=== PATIENT | male | born 1940 | race Caucasian/White ===

== ENCOUNTER 2021-05-03 11:53 | Observation (INO) | payer MEDICARE, SELFPAY ==
[2021-05-03] VITALS (10 sets, daily range): BP systolic 125–184; BP diastolic 65–88; PULSE 62–78; RESP 14–20; TEMP 36.5; O2SAT 90–98; BMI 19.8
--- NOTE | 2021-05-03 12:17 | XRR_ITS ---
PROCEDURE INFORMATION: Exam: XR Chest Exam date and time: 05/03/2021 12:17 PM Age: 80 years old Clinical indication: Cough; Additional info: Light-headedness, cough TECHNIQUE: Imaging protocol: XR of the chest. Views: 1 view. COMPARISON: CR Chest 1 [place] [id number] 12/01/2017 4:11 PM FINDINGS: Lungs: Mild right perihilar and [id number]-yaegmjdg left mid and left lung base pneumonia. Pleural spaces: Unremarkable. No pleural effusion. No pneumothorax. Heart/Mediastinum: Unremarkable. No cardiomegaly. Bones/joints: Unremarkable. XR/XR chest 1V portable [id number] IMPRESSION: Mild right perihilar and [id number]-svvcttft left mid and left lung base pneumonia.
--- NOTE | 2021-05-03 12:17 | ECG_ITS ---
[facility] Test Date: 2021-05-03 Pat Name: Lan Nino Department: Room: Gender: Male Director Orange: : 1940 Requested By: Ulises Molina Order Number: [id number] Parks MD: Sydney Escobar M.D. Measurements Intervals [place] Rate: 73 P: 41 WV: 176 QRS: 4 QRSD: 103 T: 36 QT: 395 QTc: 436 Interpretive Statements SINUS RHYTHM WITH OCCASIONAL VENTRICULAR PREMATURE COMPLEXES WITH FREQUENT SUPRAVENTRICULAR PREMATURE COMPLEXES MINIMAL ST DEPRESSION [0.025+ mV ST DEPRESSION] ABNORMAL RHYTHM ECG Compared to ECG 12/01/2017 18:53:26 Ventricular premature complex(es) now present ST (T wave) deviation now present Electronically Signed On 05-03-2021 20:04:56 DATASTAGE CONSULTANT by Sydney Escobar M.D. [email or web address]
--- NOTE | 2021-05-03 12:21 | ED_ITS ---
HPI - General Adult General: Chief complaint: COVID symptoms Stated complaint: WEAKNESS; NOT EATING Time Seen by Provider: 05/03/21 12:00 History of Present Illness: HPI narrative: Patient is a 80-year-old male w/ hx of HTN not compliant with medication presents the emergency room with complaints of generalized weakness, fatigue, cough dyspnea worsening over the last week. Per patient's currently hospitalized for COVID, patient has been had a cough and 2 days ago was walking when he fell and hit his head twice. Patient's denies any chest pain, fever/chills, abdominal complaints, nausea/vomiting, diarrhea, melena hematochezia. He has no urinary complaints today. Patient's was admitted for covid. Patient's daughter claims he hasn't eaten anything other than 3 cookies this whole week. Onset:1 week ago Duration:1 week Location:home Severity:moderate Associated symptoms: Reports dyspnea and malaise; Deny chest pain, nausea, rash, palpitations or vomiting Review of Systems Const: Reports: chills, fatigue, malaise and other (generalized weakness); Denies: fever(s) Eyes: Denies: change in vision ENMT: Denies: mouth pain Card: Denies: chest pain or palpitations Resp: Reports: dyspnea and non-productive cough GI: Denies: abdominal pain, nausea, vomiting or diarrhea : Denies: dysuria Musc: Denies: extremity pain Skin/Breast: Denies: rash or new lesions Neuro: Denies: weakness in extremities Psych: Reports: other (Normal mood) David/Lymph: Denies: easy bruising PFS ED PFSH: Medical History (Updated 05/03/21 @ 16:07 by Ulises Molina MD) Hypertension Family History (Updated 05/03/21 @ 12:21 by Ulises Molina MD) Denies family history of Anesthesia complication Bleeding disorder Social History (Updated 05/03/21 @ 12:21 by Ulises Molina MD) Smoking and tobacco status: never smoked Alcohol intake: never Substance/Drug Use: never Physical Exam Const: COMMON NORMALS: alert HENMT: COMMON NORMALS: atraumatic HEAD & SCALP: atraumatic MOUTH: moist mucous membranes not abnormal Eye: COMMON NORMALS: EOMs intact bilaterally and conjunctivae normal CONJUNCTIVA: Yes conjunctivae normal Neck/C-Spine: COMMON NORMALS: full ROM and supple Resp: COMMON NORMALS: normal respiratory effort and clear to auscultation bilaterally AUSCULTATION: clear to auscultation bilaterally Cardio: COMMON NORMALS: regular rate RATE: regular rate GI: COMMON NORMALS: Soft to palpation and non-tender PALPATION: Yes Soft to palpation Extremity: COMMON NORMALS: full ROM Neuro: SENSORIUM/ORIENTATION: Yes alert MOTOR EXAM: No Abnormal motor strength present and Other motor observations present (no focal motor deficits) Psych: COMMON NORMALS: speech normal SPEECH: Yes normal speech MOOD & AFFECT: Yes euthymic mood Course Vital Signs: Vital signs: Vital Signs Temperature 97.7 F 05/03/21 12:06 Pulse Rate 67 05/03/21 15:31 Respiratory Rate 16 05/03/21 15:31 Blood Pressure 135/88 05/03/21 15:31 Pulse Oximetry 90 05/03/21 15:31 MDM - General Adult MDM Narrative: Medical decision making narrative: 80-year-old male presents emergency room with inability to care for self, decreased p.o. intake, g eneralized weakness cough and dyspnea. She is afebrile, no focal findings on physical exam. Patient do not have a creatinine 1.7 with no prior baseline for comparison. Patient is COVID-positive. I have discussed case with patient's who tells me that since she is in the hospital, she is not able to take care of him at home. Patient's daughter agrees with plan for observation of patient for 1 day. Patient will be made his hospital for rehydration and rehydration. Disposition: admission Lab Data: Labs: Lab Results 05/03/21 05/03/21 05/03/21 12:05 12:05 12:05 WBC 3.7 10^3/uL L 10^ 3/uL (4.0-10.0) RBC 3.94 10^6/uL L 10 ^6/uL (4.1-5.3) Hgb 11.6 g/dL L g/dL (11.7-16.6) Hct 33.6 % L % (42.0-52.0) MCV 85.3 fl fl (80-94) MCH 29.4 pg pg (28.0-34.0) MCHC 34.5 g/dL g/dL (30.0-36.0) RDW 12.7 % % (12.1-15.1) Plt Count 196 10^3/cmm 10^3 /cmm (130-400) MPV 9.0 fL fL (7.4-10.4) Neut % (Auto) 67.8 % % Lymph % (Auto) 23.3 % % [place] % (Auto) 8.0 % % Eos % (Auto) 0.3 % % Baso % (Auto) 0.3 % % Neut # (Auto) 2.53 10^3/uL 10^3 /uL (1.8-7.7) Lymph # (Auto) 0.9 10^3/uL 10^3/ uL (0.8-4.8) [place] # (Auto) 0.3 10^3/uL 10^3/ uL (0.2-0.9) Eos # (Auto) 0.0 10^3/uL 10^3/ uL (0.0-0.8) Baso # (Auto) 0.0 10^3/uL 10^3/ uL (0.0-0.1) Nucleated RBC % (a uto) 0 % % Nucleated RBCs # 0.0 /100WBC /100W BC Sodium 130 mmol/L L mmol /L (136-145) Potassium 3.5 mmol/L mmol/L (3.5-5.1) Chloride 92 mmol/L L mmol/ L (98-107) Carbon Dioxide 23 mmol/L mmol/L (22-29) Anion Gap 18.5 (5-19) BUN 25 mg/dL H mg/dL (8-23) Creatinine 1.7 mg/dL H mg/dL (0.7-1.2) GFR Calculation Not Reportable Glucose 116 mg/dL H mg/dL (65-115) Calculated Osmolal ity 275 mOsm/kg L mOs m/kg (285-295) Calcium 8.1 mg/dL L mg/dL (8.5-10.5) Magnesium 2.3 mg/dL mg/dL (1.7-2.3) Total Bilirubin 0.3 mg/dL mg/dL (0.15-1.2) AST 16 U/L U/L (0-40) ALT 6 U/L U/L (0-41) Alkaline Phosphata se 74 IU/L IU/L (40-130) Troponin T Baselin e 27 ng/L H ng/L (0-15) Troponin T 120 Min [place] Delta Troponin T NT-Pro-B Natriuret Pep 477 pg/mL H pg/mL (0-450) Total Protein 6.5 g/dL L g/dL (6.6-8.7) Albumin 3.6 g/dL g/dL (3.5-5.2) Globulin 2.9 g/dL g/dL (1.3-4.6) Lipase 90 U/L H U/L (13-60) Procalcitonin Urine Color Urine Appearance Urine pH Ur Specific Gravit y Urine Protein Urine Glucose (UA) Urine Ketones Urine Blood Urine Nitrate Urine Bilirubin Urine Urobilinogen Ur Leukocyte [place] Coronavirus 229E ( PCR) SARS-CoV-2 (PCR) 05/03/21 05/03/21 05/03/21 12:05 12:38 14:30 WBC RBC Hgb Hct MCV MCH MCHC RDW Plt Count MPV Neut % (Auto) Lymph % (Auto) [place] % (Auto) Eos % (Auto) Baso % (Auto) Neut # (Auto) Lymph # (Auto) [place] # (Auto) Eos # (Auto) Baso # (Auto) Nucleated RBC % (a uto) Nucleated RBCs # Sodium Potassium Chloride Carbon Dioxide Anion Gap BUN Creatinine GFR Calculation Glucose Calculated Osmolal ity Calcium Magnesium Total Bilirubin AST ALT Alkaline Phosphata se Troponin T Baselin e Troponin T 120 Min [place] 24.48 ng/L H ng/L (0-15) Delta Troponin T -2.52 ABS# L ABS# (0-10) NT-Pro-B Natriuret Pep Total Protein Albumin Globulin Lipase Procalcitonin 0.15 ng/mL ng/mL (0-0.5) Urine Color Urine Appearance Urine pH Ur Specific Gravit y Urine Protein Urine Glucose (UA) Urine Ketones Urine Blood Urine Nitrate Urine Bilirubin Urine Urobilinogen Ur Leukocyte [place] Coronavirus 229E ( PCR) Not detected (NOT DETECT) SARS-CoV-2 (PCR) Detected A (NOT DETECT) 05/03/21 14:30 WBC RBC Hgb Hct MCV MCH MCHC RDW Plt Count MPV Neut % (Auto) Lymph % (Auto) [place] % (Auto) Eos % (Auto) Baso % (Auto) Neut # (Auto) Lymph # (Auto) [place] # (Auto) Eos # (Auto) Baso # (Auto) Nucleated RBC % (a uto) Nucleated RBCs # Sodium Potassium Chloride Carbon Dioxide Anion Gap BUN Creatinine GFR Calculation Glucose Calculated Osmolal ity Calcium Magnesium Total Bilirubin AST ALT Alkaline Phosphata se Troponin T Baselin e Troponin T 120 Min [place] Troponin T NT-Pro-B Natriuret Pep Total Protein Albumin Globulin Lipase Procalcitonin Urine Color Yellow (Yellow) Urine Appearance Clear (CLEAR) Urine pH 5 (5-7) Ur Specific Gravit y 1.020 (1.005-1.030) Urine Protein Neg (Negative) Urine Glucose (UA) Norm (Normal) Urine Ketones Negative (Negative) Urine Blood Neg (Negative) Urine Nitrate Negative (Negative) Urine Bilirubin Neg (Negative) Urine Urobilinogen Norm mg/dL mg/dL (Negative) Ur Leukocyte [place] Negative (Negative) Coronavirus 229E ( PCR) SARS-CoV-2 (PCR) Imaging Data^: Other Imaging: Radiologist's impression: [address] [id number] Scan ReportSigned Patient: Lan Nino #: [id number]: 3Acc#:[id number]/Sex: 80 / MADM Date: 05/03/21Loc: ERRoom/Bed:Attending Dr: Ordering Provider/Ordering MD: Ulises Molina MD Date of Service: 05/03/21 Procedure(s): CT head wo con* [id number] Accession Number(s): [id number] Report Number: [id number] PROCEDURE INFORMATION: Exam: CT Head Without Contrast Exam date and time: 05/03/2021 12:21 PM Age: 80 years old Clinical indication: Injury or trauma; Blunt trauma (contusions or hematomas); Without loss of consciousness; Patient HX: Fall 2 days ago denies loc TECHNIQUE: Imaging protocol: Computed tomography of the head without contrast. Radiation optimization: All CT scans at this facility use at least one of these dose optimization techniques: automated exposure control; mA and/or kV adjustment per patient size (includes targeted exams where dose is matched to clinical indication); or iterative reconstruction. COMPARISON: CT head wo con* [id number] 02/21/2017 5:28 PM RADIATION DOSE METRICS: Total DLP (mGy-cm): 997.15 FINDINGS: Brain: Mild to moderate cerebral atrophy and ischemic leukoencephalopathy. Cerebral ventricles: No ventriculomegaly. Paranasal sinuses: Decreased left maxillary sinus disease with moderate residual. Moderate bilateral ethmoid sinus disease. Mastoid air cells: Visualized mastoid air cells are well aerated. Vasculature: Moderate calcified intracranial atherosclerotic vessel disease. Bones/joints: Unremarkable. No acute fracture. Soft tissues: Unremarkable. Other findings: Continued chronic otitis media and possible external otitis. CT/CT head wo con* [id number] IMPRESSION: 1. Decreased left maxillary sinus disease with moderate residual. 2. Moderate bilateral ethmoid sinus disease. 3. Continued chronic otitis media and possible external otitis. 4. No acute intracranial findings. Dictated By:Hugo Hamilton MDSigned By:Hugo Hamilton MDSigned Date/Time:05/03/21 1448DD/ 1221 [address] [place], [place] [address]DCfl ReportSigned Patient: Lan Nino #: [id number]: 1940cct#:[id number]/Sex: 80 / MADM Date: 05/03/21Loc: ERRoom/Bed:Attending Dr: Ordering Provider/Ordering MD: Ulises Molina MD Date of Service: 05/03/21 Procedure(s): XR chest 1V portable [id number] Accession Number(s): [id number] Report Number: [id number] PROCEDURE INFORMATION: Exam: XR Chest Exam date and time: 05/03/2021 12:17 PM Age: 80 years old Clinical indication: Cough; Additional info: Light-headedness, cough TECHNIQUE: Imaging protocol: XR of the chest. Views: 1 view. COMPARISON: CR Chest 1 [place] [id number] 12/01/2017 4:11 PM FINDINGS: Lungs: Mild right perihilar and awmu-hr-myfmozto left mid and left lung base pneumonia. Pleural spaces: Unremarkable. No pleural effusion. No pneumothorax. Heart/Mediastinum: Unremarkable. No cardiomegaly. Bones/joints: Unremarkable. XR/XR chest 1V portable [id number] IMPRESSION: Mild right perihilar and wmfm-[id number] left mid and left lung base pneumonia. Dictated By:Hugo Hamilton MDSigned By:Hugo Hamilton MDSigned Date/Time:05/03/21 1449DD/ 1217 Discharge Plan Discharge Clinical Impression: Generalized weakness, Fatigue, Cough, Dyspnea, Fall Condition: Stable Coding Level of Care Code ED Management Coordinator for Chg Fwd Exam Comprehensive
[2021-05-03 12:30] LABS: Basophils % 0.3 %; Eosinophils % 0.3 %; Hematocrit 33.6 % (42.0-52.0); Hemoglobin 11.6 g/dL (11.7-16.6); Lymphocytes # 0.9 10^3/uL (0.8-4.8); Lymphocytes % 23.3 %; Mean Corpuscular HGB Conc 34.5 g/dL (30.0-36.0); Mean Corpuscular Hemoglobin 29.4 pg (28.0-34.0); Mean Corpuscular Volume 85.3 fl (80-94); Monocytes # 0.3 10^3/uL (0.2-0.9); Neutrophils # 2.53 10^3/uL (1.8-7.7); Neutrophils % 67.8 %; Nucleated Red Blood Cells % 0 %; Platelet Count 196 10^3/cmm (130-400); Red Blood Count 3.94 10^6/uL (4.1-5.3); Red Cell Distribution Width 12.7 % (12.1-15.1); White Blood Count 3.7 10^3/uL (4.0-10.0)
[2021-05-03 12:55] LABS: Troponin(5th) Baseline 27 ng/L (0-15)
[2021-05-03 13:00] LABS: Alanine Aminotransferase 6 U/L (0-41); Albumin Level 3.6 g/dL (3.5-5.2); Alkaline Phosphatase 74 IU/L (40-130); Anion Gap 18.5 (5-19); Aspartate Amino Transferase 16 U/L (0-40); Blood Urea Nitrogen 25 mg/dL (8-23); Calcium 8.1 mg/dL (8.5-10.5); Carbon Dioxide 23 mmol/L (22-29); Chloride 92 mmol/L (98-107); Globulin 2.9 g/dL (1.3-4.6); Glucose 116 mg/dL (65-115); Lipase 90 U/L (13-60); Magnesium 2.3 mg/dL (1.7-2.3); NT Pro B Type Natriuretic Pept 477 pg/mL (0-450); Osmolality Calculated 275 mOsm/kg (285-295); Potassium 3.5 mmol/L (3.5-5.1); Sodium 130 mmol/L (136-145); Total Bilirubin 0.3 mg/dL (0.15-1.2); Total Protein 6.5 g/dL (6.6-8.7)
[2021-05-03 14:24] LABS: Adenovirus Not Detected (NOT DETECT); Chlamydia Pneumoniae Not Detected (NOT DETECT); Coronavirus 229E,HKU1,NL63,OC4 Not Detected (NOT DETECT); Human Metapneumovirus Not Detected (NOT DETECT); Human Rhinovirus/Enterovirus Not Detected (NOT DETECT); Influenza A Not Detected (NOT DETECT); Influenza A H1 Not Detected (NOT DETECT); Influenza A H1-2009 Not Detected (NOT DETECT); Influenza A H3 Not Detected (NOT DETECT); Influenza B Not Detected (NOT DETECT); Mycoplasma Pneumoniae Not Detected (NOT DETECT); Parainfluenza Virus Type 1 Not Detected (NOT DETECT); Parainfluenza Virus Type 2 Not Detected (NOT DETECT); Parainfluenza Virus Type 3 Not Detected (NOT DETECT); Parainfluenza Virus Type 4 Not Detected (NOT DETECT); Respiratory Syncytial Virus A Not Detected (NOT DETECT); Respiratory Syncytial Virus B Not Detected (NOT DETECT); SARS-COV-2 Detected (NOT DETECT)
[2021-05-03 14:39] LABS: Add Urine Microscopic? NO; Charge for UA Resulting for Rev
[2021-05-03 14:41] LABS: Bilirubin Urine Neg (Negative); Blood Urine Neg (Negative); Glucose Urine UA Norm (Normal); Ketones Urine Negative (Negative); Leukocyte Esterase Urine Negative (Negative); Nitrate Urine Negative (Negative); Protein Urine Neg (Negative); Urine Appearance Clear (CLEAR); Urine Color Yellow (Yellow); Urobilinogen Urine Norm (Negative); pH Urine 5 (5-7)
[2021-05-03 15:03] LABS: Troponin 5 2HR 24.48 ng/L (0-15)
[2021-05-03 15:06] LABS: Troponin 5 2HR Delta -2.52 ABS# (0-10)
--- NOTE | 2021-05-03 15:08 | P.HP_ITS ---
Providers/Chief Complaint Chief Complaint: WEAKNESS; NOT EATING History of Present Illness Lan Nino is a 80 year old male who presented to the hospital with chief complaint of generalized weakness and malaise. Patient is stating that his symptoms started roughly about 4 to 5 days ago with fatigue which has gradually gotten worse, his is admitted to the hospital COVID-19 hypoxia, today his daughter sent him to the ER for further evaluation for his worsening fatigue lethargy and confusion. In the ER he was diagnosed with dehydration, tested positive for COVID-19, he is not requiring oxygen at rest, acute on chronic kidney disease, hyponatremia. Sinus rhythm with PVCs Patient denied chest pain, nausea, vomiting, diarrhea and febrile events at home. Past Medical History: History of pelvic fracture, with prolonged hospital stay Hypertension COPD Gout Hypothyroidism Gastroesophageal reflux disease Depression/anxiety history of colon cancer Carotid artery disease Other Surgical History: Skin cancer removal, with radical neck done secondary to squamous cell carcinoma left side Colon cancer, with some type of colectomy about 12 years ago Other Family Medical History: Significant for coronary disease in his father as well as prostate cancer Other Past Social History: He chews tobacco. Denies smoking, alcohol or illicit substance use. reports he is a full code, but does not want any prolonged life support. Review of Systems Const: Reports: chills, body aches, change in appetite, change in weight, fatigue and malaise Eyes: Denies: change in vision ENMT: Denies: throat pain Card: Denies: chest pain Resp: Reports: dyspnea GI: Denies: abdominal pain : Denies: flank pain Musc: Denies: neck pain Skin/Breast: Denies: rash Neuro: Denies: headache(s) Psych: Denies: anxiety Endo: Denies: polyuria David/Lymph: Denies: easy bruising All/Imm: Denies: urticaria Medications/Allergies Home Medications Medication Instructions Recorded Confirmed Last Taken Type Unable to Assess 05/03/21 05/03/21 Unknown History Allergies Allergy/AdvReac Type Severity Reaction Status Date / Time No Known Allergies Allergy Verified 05/03/21 12:06 PFSH Acute PFSH: Medical History Hypertension Surgical History (Updated 05/03/21 @ 16:12 by Hannah Llanos MD) H/O colectomy Family History Denies family history of Anesthesia complication Bleeding disorder Social History Smoking and tobacco status: never smoked Alcohol intake: never Substance/Drug Use: never Vitals/I&O/Wt Last Vital Signs Temp 97.7 F 05/03/21 12:06 Pulse 66 05/03/21 14:30 Resp 16 05/03/21 14:30 BP 135/88 05/03/21 14:30 Pulse Ox 95 05/03/21 14:30 Weight last 48 hrs Weight 64.41 kg Physical Exam Narrative: EXAM NARRATIVE: Patient looks clinically dehydrated Appears stated age Awake and alert Very hard of hearing Sinus rhythm with PVCs Hemodynamically stable No active shortness of breath Saturating well on room air Heart rate in 70s No signs of edema Abdomen soft Mild rhonchi otherwise no acute respite distress or conversational dyspnea He is awake and alert oriented to time place and person Data : 05/03/21 12:05 05/03/21 12:05 A&P Assessment and plan (1) COVID: Status: Acute (2) Confused: Status: Acute (3) Generalized weakness: Status: Acute (4) Fatigue: Status: Acute Additional A&P Information COVID-19 Generalized malaise and fatigue No active shortness of breath at rest, Start Decadron DuoNeb Saturating well on room air we will request ABG Acute on chronic kidney disease Seems secondary to dehydration Anticipating improvement baseline creatinine seems to be around 1.5-1.6 Confusion Likely related to COVID-19, no active strokelike changes, CT head unremarkable Sodium 130 Dehydration: Continue IV fluid hydration overnight Patient is full code Cardiac diet DVT prophylaxis Heparin Attestations Medical Necessity Statement*: Anticipating discharge within 48 hours if clinically stays stable if he becomes hypoxic this will prolong his hospitalization Time Spent in Patient Care: Greater than 35 minutes Coding Level of Care Code Acute Director Banking for Chg Fwd Diagnoses COVID U07.1 Confused R41.0 Generalized weakness R53.1 Fatigue R53.83
[2021-05-03 16:05] LABS: Procalcitonin 0.15 ng/mL (0-0.5)
--- NOTE | 2021-05-03 18:17 | ECG_ITS ---
[facility] Test Date: 2021-05-03 Pat Name: Lan Nino Department: Room: EDIP Gender: Male Raking Machine Operator: : 1940 Requested By: Ulises Molina Order Number: [id number] Charly MD: Sydney Escobar M.D. Measurements Intervals [place] Rate: 79 P: 47 IN: 196 QRS: 5 QRSD: 97 T: 17 QT: 356 QTc: 408 Interpretive Statements SINUS RHYTHM WITH OCCASIONAL SUPRAVENTRICULAR PREMATURE COMPLEXES MINIMAL ST DEPRESSION [0.025+ mV ST DEPRESSION] Compared to ECG 05/03/2021 12:33:30 Ventricular premature complex(es) no longer present ST (T wave) deviation still present Electronically Signed On 05-03-2021 20:15:46 FAGOT HEATER HELPER by Sydney Escobar M.D. [id number]
[2021-05-03] MEDS: lactated ringers 1,000 ML 100 ML IV (20:57)
[2021-05-03] MEDS: heparin 5,000 unit/mL INJ 1 mL 5000 UNIT SUBCUT (22:50)
[2021-05-04] VITALS (10 sets, daily range): BP systolic 144–209; BP diastolic 84–104; PULSE 59–71; RESP 17–20; TEMP 36.4; O2SAT 95–98
[2021-05-04] MEDS: potassium chloride ER 20 mEq Tablet 40 MEQ PO (00:01)
[2021-05-04] MEDS: dexamethasone 10 mg/mL INJ IVP (00:01)
[2021-05-04 04:05] LABS: ABG PCO2 33.7 mmHg (35-45); ABG PH Result 7.48 (7.35-7.45); Arterial Blood Gas Hematocrit 38.8 % (42-52); Blood Gas Allen Test Pos; Blood Gas Sample Site Radial, left; Blood Gas Sample Type Arterial; HCO3 ABG 25.1 mmol/L (22-26); Oxygen Device ROOM AIR
[2021-05-04] MEDS: lactated ringers 1,000 ML 100 ML IV (04:37)
[2021-05-04 07:06] LABS: Hematocrit 36.2 % (42.0-52.0); Hemoglobin 12.6 g/dL (11.7-16.6); Lymphocytes # 0.4 10^3/uL (0.8-4.8); Lymphocytes % 15.5 %; Mean Corpuscular HGB Conc 34.8 g/dL (30.0-36.0); Mean Corpuscular Hemoglobin 29.4 pg (28.0-34.0); Mean Corpuscular Volume 84.4 fl (80-94); Mean Platelet Volume 8.8 fL (7.4-10.4); Monocytes # 0.1 10^3/uL (0.2-0.9); Monocytes % 3.1 %; Neutrophils % 81.4 %; Nucleated Red Blood Cells % 0 %; Platelet Count 214 10^3/cmm (130-400); Red Blood Count 4.29 10^6/uL (4.1-5.3); Red Cell Distribution Width 12.6 % (12.1-15.1); White Blood Count 2.6 10^3/uL (4.0-10.0)
[2021-05-04 07:10] LABS: Alanine Aminotransferase 6 U/L (0-41); Albumin Level 3.5 g/dL (3.5-5.2); Alkaline Phosphatase 80 IU/L (40-130); Anion Gap 17.6 (5-19); Aspartate Amino Transferase 16 U/L (0-40); Blood Urea Nitrogen 22 mg/dL (8-23); Calcium 8.1 mg/dL (8.5-10.5); Carbon Dioxide 24 mmol/L (22-29); Chloride 97 mmol/L (98-107); Globulin 2.8 g/dL (1.3-4.6); Glucose 123 mg/dL (65-115); Osmolality Calculated 283 mOsm/kg (285-295); Potassium 4.6 mmol/L (3.5-5.1); Sodium 134 mmol/L (136-145); Total Bilirubin 0.3 mg/dL (0.15-1.2); Total Protein 6.3 g/dL (6.6-8.7)
[2021-05-04] MEDS: heparin 5,000 unit/mL INJ 1 mL 5000 UNIT SUBCUT (07:17)
[2021-05-04 07:23] LABS: C Reactive Protein 47.1 mg/L (0.0-4.9); Magnesium 2.2 mg/dL (1.7-2.3)
--- NOTE | 2021-05-04 08:44 | PC.CHAP ---
Pastoral Care Encounter/Spiritual Assessment Type of Contact [] Declined manager construction visit [] Patient/Family/Request visit [] Outpatient visit [] Follow-up visit [] Physician referral [] Code/Alert [x] Routine visit [] Staff referral [] Actively dying [] Patient sleeping [] Family support [] [] Out of room [] Palliative care [] [] Receiving care in room [] Pre-surgical visit [] Trauma [] Long length of stay [] ICU visit [] Other: Relational/Emotional Strength [x] Patient feels connected with others/family/visitors/staff [] Distress [] Loneliness/isolation [] Abandonment Spirituality of Patient [x] Person of [place] [] Attends Latter Day of their [place] [x] Believes in Prayer [] Reads Bible or Congregation materials [] There are Spiritual issues to be addressed Environmental Science Instructor Interventions [x] Prayer [x] Active listening [x] Non-anxious presence [] Spiritual/emotional support [] Crisis/trauma care [] Spiritual counseling [] Bereavement support [] Provided bereavement packet [] Provided Bible/devotional materials [] Provided toy/stuffed animal, coloring book to patient or family member [] Provided Communion [] Anointing/[place] [] Salvation [x] Completed spiritual assessment [] Other: Impact on Illness or Injury [] Angry [] Fearful [] Anxious [] Often cries [] Exhaustion [] Unable to work [] Unable to attend christian [] Unable to walk/stand [] Unable to read [] Unable to drive [] Unable to eat/drink [] Unable to sleep [] Unable to be with family [] Patient intubated [] Other: Summary patient eat very little needs soft foods like biscuits n gravery Time spent with patient 10 min
--- NOTE | 2021-05-04 11:01 | P.DS_ITS ---
Discharge Providers Date of Admission: 05/03/21 15:08 Date of Discharge: May 04, 2021 Attending Provider at Admission: Hannah Llanos MD Attending Provider at Discharge: Hannah Llanos MD Diagnoses at Discharge Discharge Diagnosis (1) COVID: Status: Acute (2) Confused: Status: Acute (3) Generalized weakness: Status: Acute (4) Fatigue: Status: Acute Reason for Visit Reason for Visit: WEAKNESS; NOT EATING Hospital Course Hospital Course Patient was admitted for management and evaluation of confusion related to COVID-19. Patient was admitted and given IV fluids overnight, he was not requiring any oxygen. Bam infusion given on 05/04. His symptoms started 5 days prior to hospitalization. His is already admitted to the hospital with COVID-19. On 05/04 patient was back to his baseline, he was able to tell me his name, date of , he was alert and oriented to time place and person, he has chronic facial droop, he is edentulous, no new focal deficit appreciated during this hospitalization, patient is motivated and eager to return home, he will be discharged home after home O2 evaluation. Daughter was updated. He has history of chronic kidney disease creatinine after IV fluids came down to around baseline 1.3-1.6, creatinine at discharge 1.5. He has been afebrile Physical Exam Narrative: EXAM NARRATIVE: Patient is very hard of hearing S1, S2 Clinically looks slightly well hydrated as compared to yesterday Awake and alert No new focal deficit Chronic facial droop Edentulous Has good strength of upper and lower extremities Saturating well on room air No audible stridor or wheezing Discharge Data Data Completed and Pending: Completed Studies During Hospitalization Category Date Time Status CT head wo con* [id number] Urgent Cat Scan 05/03/21 12:21 Completed XR chest 1V samantha ble [id number] Urgent Exams 05/03/21 12:17 Completed Labs from last 24 hours 05/04/21 05/04/21 05/04/21 06:35 06:35 06:35 WBC 2.6 L RBC 4.29 Hgb 12.6 Hct 36.2 L MCV 84.4 MCH 29.4 MCHC 34.8 RDW 12.6 Plt Count 214 MPV 8.8 Neut % (Auto) 81.4 Lymph % (Auto) 15.5 [place] % (Auto) 3.1 Eos % (Auto) 0.0 Baso % (Auto) 0.0 Neut # (Auto) 2.10 Lymph # (Auto) 0.4 L [place] # (Auto) 0.1 L Eos # (Auto) 0.0 Baso # (Auto) 0.0 Nucleated RBC % (a uto) 0 Nucleated RBCs # 0.0 Specimen Type Sample Site ABG pH ABG pCO2 ABG pO2 ABG HCO3 ABG Base Excess Alfonso Test Hematocrit O2 Delivery Device Manager Bridge ID Sodium 134 L Potassium 4.6 Chloride 97 L Carbon Dioxide 24 Anion Gap 17.6 BUN 22 Creatinine 1.5 H GFR Calculation Not Reportable Glucose 123 H Calculated Osmolal ity 283 L Calcium 8.1 L Magnesium 2.2 Total Bilirubin 0.3 AST 16 ALT 6 Alkaline Phosphata se 80 Troponin T Baselin e Troponin T 120 Min [place] Delta Troponin T Troponin T Hi Sens 6Hr Troponin T Hi Sens 6Hr Delta C-Reactive Protein 47.1 H NT-Pro-B Natriuret Pep Total Protein 6.3 L Albumin 3.5 Globulin 2.8 Lipase Procalcitonin Urine Color Urine Appearance Urine pH Ur Specific Gravit y Urine Protein Urine Glucose (UA) Urine Ketones Urine Blood Urine Nitrate Urine Bilirubin Urine Urobilinogen Ur Leukocyte Rosa ase Coronavirus 229E ( PCR) SARS-CoV-2 (PCR) 05/04/21 05/03/21 05/03/21 03:53 18:50 14:30 WBC RBC Hgb Hct MCV MCH MCHC RDW Plt Count MPV Neut % (Auto) Lymph % (Auto) [place] % (Auto) Eos % (Auto) Baso % (Auto) Neut # (Auto) Lymph # (Auto) [place] # (Auto) Eos # (Auto) Baso # (Auto) Nucleated RBC % (a uto) Nucleated RBCs # Specimen Type Arterial Sample Site Radial, left ABG pH 7.48 H ABG pCO2 33.7 L ABG pO2 71.0 L ABG HCO3 25.1 ABG Base Excess 2.0 Alfonso Test Pos Hematocrit 38.8 L O2 Delivery Device Room air Manager Bridge ID Buttr Sodium Potassium Chloride Carbon Dioxide Anion Gap BUN Creatinine GFR Calculation Glucose Calculated Osmolal ity Calcium Magnesium Total Bilirubin AST ALT Alkaline Phosphata se Troponin T Baselin e Troponin T 120 Min [place] Delta Troponin T Troponin T Hi Sens 6Hr 24.50 H Troponin T Hi Sens 6Hr Delta -2.50 L C-Reactive Protein NT-Pro-B Natriuret Pep Total Protein Albumin Globulin Lipase Procalcitonin Urine Color Yellow Urine Appearance Clear Urine pH 5 Ur Specific Gravit y 1.020 Urine Protein Neg Urine Glucose (UA) Norm Urine Ketones Negative Urine Blood Neg Urine Nitrate Negative Urine Bilirubin Neg Urine Urobilinogen Norm Ur Leukocyte [place] Negative Coronavirus 229E ( PCR) SARS-CoV-2 (PCR) 05/03/21 05/03/21 05/03/21 14:30 12:38 12:05 WBC RBC Hgb Hct MCV MCH MCHC RDW Plt Count MPV Neut % (Auto) Lymph % (Auto) [place] % (Auto) Eos % (Auto) Baso % (Auto) Neut # (Auto) Lymph # (Auto) [place] # (Auto) Eos # (Auto) Baso # (Auto) Nucleated RBC % (a uto) Nucleated RBCs # Specimen Type Sample Site ABG pH ABG pCO2 ABG pO2 ABG HCO3 ABG Base Excess Alfonso Test Hematocrit O2 Delivery Device Manager Bridge ID Sodium Potassium Chloride Carbon Dioxide Anion Gap BUN Creatinine GFR Calculation Glucose Calculated Osmolal ity Calcium Magnesium Total Bilirubin AST ALT Alkaline Phosphata se Troponin T Baselin e Troponin T 120 Min [place] 24.48 H Delta Troponin T -2.52 L Troponin T Hi Sens 6Hr Troponin T Hi Sens 6Hr Delta C-Reactive Protein NT-Pro-B Natriuret Pep Total Protein Albumin Globulin Lipase Procalcitonin 0.15 Urine Color Urine Appearance Urine pH Ur Specific Gravit y Urine Protein Urine Glucose (UA) Urine Ketones Urine Blood Urine Nitrate Urine Bilirubin Urine Urobilinogen Ur Leukocyte [place] Coronavirus 229E ( PCR) Not detected SARS-CoV-2 (PCR) Detected A 05/03/21 05/03/21 05/03/21 12:05 12:05 12:05 WBC 3.7 L RBC 3.94 L Hgb 11.6 L Hct 33.6 L MCV 85.3 MCH 29.4 MCHC 34.5 RDW 12.7 Plt Count 196 MPV 9.0 Neut % (Auto) 67.8 Lymph % (Auto) 23.3 [place] % (Auto) 8.0 Eos % (Auto) 0.3 Baso % (Auto) 0.3 Neut # (Auto) 2.53 Lymph # (Auto) 0.9 [place] # (Auto) 0.3 Eos # (Auto) 0.0 Baso # (Auto) 0.0 Nucleated RBC % (a uto) 0 Nucleated RBCs # 0.0 Specimen Type Sample Site ABG pH ABG pCO2 ABG pO2 ABG HCO3 ABG Base Excess Alfonso Test Hematocrit O2 Delivery Device Manager Bridge ID Sodium 130 L Potassium 3.5 Chloride 92 L Carbon Dioxide 23 Anion Gap 18.5 BUN 25 H Creatinine 1.7 H GFR Calculation Not Reportable Glucose 116 H Calculated Osmolal ity 275 L Calcium 8.1 L Magnesium 2.3 Total Bilirubin 0.3 AST 16 ALT 6 Alkaline Phosphata se 74 Troponin T Baselin e 27 H Troponin T 120 Min [place] Delta Troponin T Troponin T Hi Sens 6Hr Troponin T Hi Sens 6Hr Delta C-Reactive Protein NT-Pro-B Natriuret Pep 477 H Total Protein 6.5 L Albumin 3.6 Globulin 2.9 Lipase 90 H Procalcitonin Urine Color Urine Appearance Urine pH Ur Specific Gravit y Urine Protein Urine Glucose (UA) Urine Ketones Urine Blood Urine Nitrate Urine Bilirubin Urine Urobilinogen Ur Leukocyte [place] Coronavirus 229E ( PCR) SARS-CoV-2 (PCR) Vitals: Last Vital Signs Temp 97.5 F L 05/04/21 08:00 Pulse 60 05/04/21 10:51 Resp 17 05/04/21 10:51 BP 144/84 05/04/21 08:00 Pulse Ox 96 05/04/21 10:51 Discharge Plan Discharge Patient Disposition: Home Condition: Stable Prescriptions: New albuterol sulfate 90 mcg/actuation HFA aerosol inhaler 2 inh inhalation Q8H PRN (Reason: shortness of breath or wheezing) Qty: 8.5 RF: 1 prednisone 10 mg tablet 10 mg PO DAILY Qty: 5 RF: 0 Discharge Orders: Discharge Order (Routine); Ordered 05/04/21 Ordered By: Hannah Llanos Discharge Diet: Regular Discharge Activity: Increase activity as tolerated Patient Instructions: Albuterol (By mouth), Prednisone (By mouth), COVID-19 (Coronavirus Disease 2019) (DC), Opioid Safety Discharge Attestations Time Spent in Discharge Care*: less than 30 min Quality Metrics Clinical Quality Measures During this hospital stay, did patient experience: None Coding Level of Care Code Acute Chg FW DC note Diagnoses COVID U07.1 Confused R41.0 Generalized weakness R53.1 Fatigue R53.83
[2021-05-04] MEDS: sennosides-docusate Tablet 1 TAB PO (11:09)
[2021-05-04 11:46] LABS: Lipase 81 U/L (13-60)
== END 2021-05-04 15:10 | disposition home or self-care (01) ==
LOC: ER 16:00 → ER IP 16:21 → MEDSURG 05-04 06:53
PROVIDERS: Admitting Provider Internal Medicine; Emergency Provider Emergency Medicine; Visit Provider Internal Medicine
DX: U07.1 COVID-19 (principal); R41.0 Disorientation, unspecified; R53.1 Weakness; R53.83 Other fatigue; I10 Essential (primary) hypertension; J44.9 Chronic obstructive pulmonary disease, unspecified; E03.9 Hypothyroidism, unspecified; K21.9 Gastro-esophageal reflux disease without esophagitis; I25.10 Atherosclerotic heart disease of native coronary artery without angina pectoris; Z80.0 Family history of malignant neoplasm of digestive organs; Z90.49 Acquired absence of other specified parts of digestive tract
CPT/HCPCS: 36415; 36600; 70450; 71045; 80053; 81003; 82803; 83690; 83735; 83880; 84145; 84484; 85025; 86140; 87635; 93005; 96372; 97116; 97161; G0378; J1100; J1644

== ENCOUNTER 2022-02-17 15:56 | Outpatient (CLI) | payer MEDICARE, OTHER, SELFPAY ==
--- NOTE | 2022-02-17 | US_ITS ---
WS: [id number] ULTRASOUND SOFT TISSUES RIGHT upper extremity. HISTORY: NODULE OF RT UPPER EXTREMITY COMPARISON: None available. TECHNIQUE: 2-D and color Doppler imaging is submitted. Mixed hypoechoic soft tissue mass along the inner RIGHT upper extremity. This is at the entry site of a prior procedure. There is no increased vascularity. Hypoechoic mass has areas of mixed stranding a nd soft tissue and measures 3.6 x 2.6 x 1.6 cm. There is no increased vascularity. This probably repr esents a residual hematoma. There is no increased vascularity to suggest pseudoaneurysm. US/US soft tissue/extremity [id number] IMPRESSION: Mixed hypoechoic soft tissue mass in the RIGHT upper extremity corresponds to t he palpable abnormality. Favor residual hematoma as there is no increased vascu larity. No history of biceps tendon injury with retraction. If this does not re solve over the next few months consider follow-up MRI with and without contrast of the RIGHT upper extremity.
== END 2022-02-17 15:57 | disposition home or self-care (01) ==
LOC: RAD 15:57
PROVIDERS: PCP Nurse Practitioner Family; Visit Provider Nurse Practitioner Family
DX: R22.31 Localized swelling, mass and lump, right upper limb (principal); I25.118 Atherosclerotic heart disease of native coronary artery with other forms of angina pectoris
CPT/HCPCS: 76882

== ENCOUNTER 2023-12-23 11:57 | Emergency (ER) | payer MEDICARE, OTHER, SELFPAY ==
[2023-12-23 12:13] VITALS: BP 119/71; PULSE 68; RESP 15; TEMP 36.3; O2SAT 98; BMI 25.0
--- NOTE | 2023-12-23 12:14 | XR_ITS ---
WS: [id number] PORTABLE CHEST HISTORY: cough/fatigue COMPARISON: 05/03/2021 Chronic emphysematous changes with areas of scarring. Volume loss similar to the prior studies. Slight increase in attenuation in the central RIGHT lung is stable. No pneumonia. No mass or nodule. No pleural effusion or pneumothorax. Cardiac size: Normal. Mediastinum/Aorta: Mild atherosclerosis aorta. No osseous abnormality seen. 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 No acute findings.
[2023-12-23 13:10] LABS: Basophils % 0.6 %; Eosinophils # 0.1 10^3/uL (0.0-0.8); Eosinophils % 2.6 %; Hematocrit 35.2 % (37-53); Lymphocytes % 19.2 %; Mean Corpuscular HGB Conc 33.2 g/dL (30-55); Mean Corpuscular Volume 87.1 fl (82-101); Mean Platelet Volume 8.2 fL (7.4-10.4); Monocytes # 0.4 10^3/uL (0.2-0.9); Monocytes % 8.6 %; Neutrophils # 3.43 10^3/uL (1.8-7.7); Neutrophils % 68.8 %; Nucleated Red Blood Cells % 0 %; Platelet Count 242 10^3/cmm (157-399); Red Blood Count 4.04 10^6/uL (3.85-5.65); Red Cell Distribution Width 13.2 % (12.1-15.1); White Blood Count 4.99 10^3/uL (3.29-11.43)
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
[2023-12-23 13:26] LABS: Alanine Aminotransferase 9 U/L (0-41); Albumin Level 3.6 g/dL (3.5-5.2); Alkaline Phosphatase 72 U/L (40-130); Anion Gap 14.1 (5-19); Aspartate Amino Transferase 15 U/L (0-40); Blood Urea Nitrogen 30 mg/dL (8-23); Calcium 8.9 mg/dL (8.5-10.5); Carbon Dioxide 28 mmol/L (22-29); Chloride 97 mmol/L (98-107); Creatinine Clr Calc Pharmacy 34.2129; Globulin 3.2 g/dL (1.3-4.6); Glucose 156 mg/dL (65-115); Osmolality Calculated 289 mOsm/kg (285-295); Potassium 4.1 mmol/L (3.5-5.1); Sodium 135 mmol/L (136-145); Total Bilirubin 0.3 mg/dL (0.15-1.2); Total Protein 6.8 g/dL (6.6-8.7)
[2023-12-23 14:17] LABS: Covid PCR NEGATIVE (Negative); Influenza A NEGATIVE (Negative); Influenza B NEGATIVE (Negative); Respiratory Syncytial Virus Ce NEGATIVE (Negative)
[2023-12-23 14:47] LABS: Add Urine Microscopic? NO
[2023-12-23 15:04] LABS: Bilirubin Urine Neg (Negative); Blood Urine Neg (Negative); Glucose Urine UA Norm (Normal); Ketones Urine Negative (Negative); Leukocyte Esterase Urine Negative (Negative); Nitrate Urine Negative (Negative); Protein Urine Neg (Negative); Specific Gravity, Urine 1.015 (1.005-1.030); Urine Appearance Clear (CLEAR); Urine Color Yellow (Yellow); Urobilinogen Urine Norm (Negative); pH Urine 6 (5-7)
[2023-12-23 15:05] LABS: Charge for UA Resulting for Rev
[2023-12-23 15:34] VITALS: BP 117/73; PULSE 65; RESP 16; O2SAT 97
== END 2023-12-23 15:33 | disposition home or self-care (01) ==
PROVIDERS: Emergency Provider Physician Assistant; PCP Nurse Practitioner Family
DX: R05.1 Acute cough (principal); R53.83 Other fatigue; I10 Essential (primary) hypertension
CPT/HCPCS: 0241U; 36415; 71045; 80053; 81003; 85025; 99284